=== PATIENT | female | born 1975 | race Caucasian/White ===

== ENCOUNTER 2017-02-14 22:17 | Outpatient (CLI) | payer MEDICAID ==
[~2017-02-14] VITALS: Ht 172.7 cm; Wt 105.5 kg
[2017-02-14 23:15] VITALS: Ht 172.7 cm; Wt 105.5 kg
[2017-02-14 23:16] VITALS: BP 131/60; PULSE 87; RESP 18
[2017-02-15] MEDS ORDERED: ACETAMINOPHEN 325 MG TAB PO ONE
[2017-02-15 00:22] LABS: BASOPHILS % 0.5 % (0.0-2.0); EOSINOPHILS # 0.1 10^3/ul (0.0-0.5); EOSINOPHILS % 1.3 % (0.0-7.0); HEMATOCRIT 33.2 % (37.0-47.0); HEMOGLOBIN 11.1 g/dl (12.0-16.0); LYMPHOCYTES # 1.9 10^3/ul (0.8-2.9); LYMPHOCYTES % 30.4 % (15.0-51.0); MEAN CORPUSCULAR HEMOGLOBIN 26.7 pg (29.0-33.0); MEAN CORPUSCULAR HGB CONC 33.4 g/dl (32.0-37.0); MEAN PLATELET VOLUME 9.5 fl (7.4-10.4); MONOCYTE # 0.7 10^3/ul (0.3-0.9); MONOCYTES % 10.7 % (0.0-11.0); NEUTROPHIL # 3.6 10^3/ul (1.6-7.5); NEUTROPHILS % 56.5 % (39.0-77.0); PLATELET COUNT 291 10^3/UL (140-415); RED BLOOD COUNT 4.15 10^6/ul (4.20-5.40); RED CELL DISTRIBUTION WIDTH 13.7 % (11.5-14.5); WHITE BLOOD COUNT 6.4 10^3/ul (4.8-10.8)
--- NOTE | 2017-02-15 00:27 | QN ---
Documentation Comment iup 35 weeks co ucx vss exam wnl a/p iup 35 weeks false labor AP TIDWELL MD Feb 15, 2017 00:27
[2017-02-15 00:42] LABS: ALBUMIN/GLOBULIN RATIO 0.88; BILIRUBIN,INDIRECT 0.2 mg/dl (0-1.1); BILIRUBIN,TOTAL 0.2 mg/dl (0.2-1.3); CREATININE 0.48 mg/dl (0.44-1.00); POTASSIUM 3.3 mmol/L (3.5-5.1); TOTAL PROTEIN 6.4 g/dl (6.1-8.1)
[2017-02-15 00:57] LABS: ADD UMIC YES; UR AMORPHOUS CRYSTAL FEW /HPF (NONE SEEN); UR ASCORBIC ACID NEGATIVE (NEGATIVE); UR BACTERIA FEW /HPF (NONE SEEN); UR BILIRUBIN (Dip) NEGATIVE (NEGATIVE); UR BLOOD (Dip) NEGATIVE (NEGATIVE); UR CLARITY CLOUDY (CLEAR); UR COLOR YELLOW (YELLOW); UR GLUCOSE (Dip) NEGATIVE (NEGATIVE); UR KETONES (Dip) NEGATIVE (NEGATIVE); UR LEUKOCYTE ESTERASE (Dip) TRACE Leu/ul (NEGATIVE); UR NITRITE (Dip) NEGATIVE (NEGATIVE); UR RBC 2 /HPF (0-5); UR SPECIFIC GRAVITY (Dip) 1.015 (1.003-1.030); UR SQUAMOUS EPITHELIAL CELL FEW /HPF (FEW); UR TOTAL PROTEIN (Dip) NEGATIVE (NEGATIVE); UR UROBILINOGEN (Dip) 1+ mg/dL (NEGATIVE)
--- NOTE | 2017-02-15 01:09 | RADRPT ---
PROCEDURE: Limited OB ultrasound to evaluate placenta CLINICAL INDICATION: 41-year-old female Vaginal bleeding. Evaluate placenta. TECHNIQUE: Sonographic evaluation to assess the cervical length was performed. Transabdominal and transvaginal imaging of the uterus was performed. COMPARISON: None. FINDINGS: MAHESH: March 17, 2017 EGA by MAHESH: 35 weeks 4 days A single live intrauterine in cephalic presentation is identified. The heart rate me asures 152 bpm. There is an posterior fundal placenta, grade 1. Placenta measures 4.5 cm in maximal thickness. Neg ative for evidence of placenta previa. IMPRESSION: Posterior fundal placenta without sonographic evidence of placental abruption or placenta previa. P lease note that ultrasound may be falsely negative in cases of placental abruption that is a clinica l diagnosis. RPTAT: HCTS Physician Jalyn Date Time Electronically viewed and signed by Physician Jalyn on 02/15/2017 01:09 /
--- NOTE | 2017-02-15 02:22 | TRIAGE ---
OB Triage Datetime Report Generated by CPN: 02/15/2017 02:21 Datetime: 02/15/2017 01:40 Stage of : OB Triage Labor Evaluation Frequency: 3-9 Monitor Mode: External Duration (sec)2399: 50-90 Quality: Mild Pattern: Normal: <= 5 Contractions in 10 Minutes Resting Tone Stanford: Relaxed Heart Rate FHR Baseline Rate: 130 Monitor Mode: External US Variability: Moderate 6-25 bpm Accelerations: 15X15 Decelerations: None Category: Category I Pain Presence: None/Denies Datetime: 02/15/2017 00:45 Stage of : OB Triage Labor Evaluation Frequency: 4-11 Monitor Mode: External Duration (sec)2399: 50-150 Quality: Mild Pattern: Normal: <= 5 Contractions in 10 Minutes Resting Tone Stanford: Relaxed Heart Rate FHR Baseline Rate: 135 Monitor Mode: External US Variability: Moderate 6-25 bpm Accelerations: 15X15 Decelerations: None Category: Category I Pain Assessment Pain Scale: 2 Pain Presence: Constant Pain Type: Crushing; Pressure Pain Location: Head Pain Goal: 3 Pain Relief Measures: Pain Medication Given (Annotations: WAS GIVEN AT 0011) Datetime: 02/14/2017 23:45 Stage of : OB Triage Temperature Route: Oral Labor Evaluation Frequency: 2-5 Monitor Mode: External Duration (sec)2399: 50-150 Quality: Mild Pattern: Normal: <= 5 Contractions in 10 Minutes Resting Tone Stanford: Relaxed Heart Rate FHR Baseline Rate: 140 Monitor Mode: External US Variability: Moderate 6-25 bpm Accelerations: 15X15 Decelerations: None Category: Category I Pain Assessment Pain Scale: 10 Pain Presence: Constant Pain Type: Crushing; Pressure Pain Location: Head Pain Goal: 3 Pain Relief Measures: Comfort Measures Datetime: 02/14/2017 23:29 Vaginal Exam Dilatation (cms): 0.0 Effacement (%): 0 Station: -3 Exam By: KEENA Vaginal Bleeding: Small Cervix, Consistency: Moderate Cervix, Position: Posterior Datetime: 02/14/2017 23:19 Assessment Type: Triage Maternal Assessment Level of Consciousness: Fully Conscious DTR's/Clonus: DTRs 2+; No Clonus Headache: Unilateral; Frontal (Annotations: rt. side) Blurred Vision: Yes (Annotations: rt. eye) Respiratory Effort: Unlabored; Regular Rhythm; Equal Expansion Breath Sounds, Left: Clear and Equal Breath Sounds, Right: Clear and Equal Nausea/Vomiting: Denies RUQ Epigastric Pain: Denies Lower Extremities Edema: Bilateral Lower Extremities Degree: 1+ Upper Extremities Edema: None Facial Edema: None Fall Risk Assessment History of Falling: (0) No Secondary Diagnosis: (0) No Ambulatory Aid: (0) Bedrest/Nurse Assist IV Therapy: (0) No Gait: (0) Normal/Bedrest/Immobile Mental Status: (0) Oriented to Own Ability Fall Score: 0 Fall Risk Score Definition: No Risk: No action required Datetime: 02/14/2017 23:18 Time of Arrival: 02/14/2017 22:00 EGA: 35.4 Arrived By: Wheelchair Arrived From: Home Chief Complaint: rt side headache, sees spots from rt. eye and rt. leg numb Movement: Present Contractions: Irregular Time Contractions Began: 02/14/2017 21:30 Rupture of Membranes: Denies Vaginal Discharge: Denies Recent Sexual Intercouse: Denies Time Provider Notified: 02/14/2017 23:46 Provider Notified: DIANN Initial Plan: efm, assessment, call md for orders
== END 2017-02-15 01:53 | disposition home or self-care (01) ==
LOC: L-D 22:17 → OBT 22:17 → L-D 22:30 → OBT 02-15 01:53
PROVIDERS: ATTEND Obstetrics & Gynecology
DX: O62.9 Abnormality of forces of labor, unspecified (principal); Z3A.35 35 weeks gestation of pregnancy
CPT/HCPCS: 76815; 80053; 81001; 85025; Z7500; Z7610; G0463

== ENCOUNTER 2017-03-08 10:48 | Inpatient (IN) | payer MEDICAID ==
[~2017-03-08] VITALS: Ht 172.7 cm; Wt 106.8 kg
[2017-03-08 11:36] VITALS: BP 118/57; PULSE 79; RESP 20; Ht 172.7 cm; Wt 106.8 kg
--- NOTE | 2017-03-08 14:06 | RADRPT ---
PROCEDURE: Obstetrical ultrasound for biophysical profile CLINICAL INDICATION: Biophysical profile. . TECHNIQUE: Obstetrical ultrasound of the uterus for biophysical profile. Transabdominal views are obtained. COMPARISON: 02/15/2017 FINDINGS: Single intrauterine gestation. Presentation: Cephalic. Placenta: Fundal No evidence of placental abruption. No evidence of placenta previa. breathing movement = 2/2 tone = 2/2 motion = 2/2 RASHID = 2/2 RASHID = 10.4 cm heart rate: 144 beats per minute IMPRESSION: Single intrauterine gestation. Biophysical profile 02/11 RPTAT: AADD .Maxim Ponce MD, MD Date Time Electronically viewed and signed by .Maxim Ponce MD, on 03/08/2017 14:06 .B/
--- NOTE | 2017-03-08 14:09 | RADRPT ---
PROCEDURE: Obstetrical ultrasound. CLINICAL INDICATION: , evaluation. Pelvic pain. TECHNIQUE: Transabdominal sonographic images of the uterus obtained after first trimester , greater than 14 weeks gestation. Single intrauterine gestation present. COMPARISON: 02/15/2017 FINDINGS: Single intrauterine gestation. There is a cephalic presentation. Measurements were made in order to determine age. The results are as follows: BPD = 36 weeks 4 day(s) HC = 38 weeks 3 day(s) AC = 41 weeks 1 day(s) FL = 38 weeks 0 day(s) Heart rate = 135 beats per minute The placenta is fundal. There is no evidence for an abruption or placenta previa. Ovaries are not visualized. IMPRESSION: Single intrauterine gestation of approximately 38 weeks 4 days by ultrasound criteria. [place] estimated weight = 3823 g; 84 percentile for gestational age of 38 weeks 5 days. RPTAT: AADD .Maxim Ponce MD, MD Date Time Electronically viewed and signed by .Maxim Ponce MD, on 03/08/2017 14:09 .B/
[2017-03-08] MEDS ORDERED: OXYTOCIN 30 UNITS/LR 500 ML IV SCH ×3 (14:30)
[2017-03-08] MEDS ORDERED: IBUPROFEN 600 MG TAB PO PRN (14:30)
[2017-03-08] MEDS ORDERED: OXYTOCIN 30 UNITS/LR 500 ML IV PRN (14:30)
[2017-03-08] MEDS ORDERED: METHYLERGONOVINE 0.2 MG INJ IM PRN (14:30)
[2017-03-08] MEDS ORDERED: LIDOCAINE 1% (MPF) 30 ML INJ INJ PRN (14:30)
[2017-03-08] MEDS ORDERED: CARBOPROST 250 MCG INJ IM PRN (14:30)
[2017-03-08] MEDS ORDERED: MISOPROSTOL 200 MCG TAB PR PRN (14:30)
[2017-03-08] MEDS ORDERED: BUTORPHANOL 2 MG INJ IV PRN ×2 (14:30)
[2017-03-08] MEDS ORDERED: LACTATED RINGER'S 1,000 ML IV PRN (14:30)
[2017-03-08] MEDS ORDERED: PRENAT PO (15:35)
[2017-03-08] MEDS ORDERED: FERR325C PO (15:35)
[2017-03-08 15:37] LABS: BASOPHILS % 0.4 % (0.0-2.0); EOSINOPHILS # 0.1 10^3/ul (0.0-0.5); EOSINOPHILS % 0.7 % (0.0-7.0); HEMATOCRIT 34.1 % (37.0-47.0); LYMPHOCYTES # 1.7 10^3/ul (0.8-2.9); LYMPHOCYTES % 24.3 % (15.0-51.0); MEAN CORPUSCULAR HEMOGLOBIN 25.6 pg (29.0-33.0); MEAN CORPUSCULAR HGB CONC 32.3 g/dl (32.0-37.0); MEAN CORPUSCULAR VOLUME 79.5 fl (82.0-101.0); MEAN PLATELET VOLUME 9.7 fl (7.4-10.4); MONOCYTE # 0.5 10^3/ul (0.3-0.9); MONOCYTES % 7.6 % (0.0-11.0); NEUTROPHILS % 66.4 % (39.0-77.0); PLATELET COUNT 282 10^3/UL (140-415); RED BLOOD COUNT 4.29 10^6/ul (4.20-5.40); RED CELL DISTRIBUTION WIDTH 14.5 % (11.5-14.5); WHITE BLOOD COUNT 7.1 10^3/ul (4.8-10.8)
[2017-03-08] MEDS: LACTATED RINGER'S 1,000 ML IV SCH ×2 (15:37→18:11)
[2017-03-08 15:40] LABS: ADD UMIC YES; UR ASCORBIC ACID NEGATIVE (NEGATIVE); UR BACTERIA FEW /HPF (NONE SEEN); UR BILIRUBIN (Dip) NEGATIVE (NEGATIVE); UR BLOOD (Dip) 2+ mg/dL (NEGATIVE); UR CLARITY SLIGHTLY CLOUDY (CLEAR); UR COLOR YELLOW (YELLOW); UR GLUCOSE (Dip) NEGATIVE (NEGATIVE); UR KETONES (Dip) NEGATIVE (NEGATIVE); UR LEUKOCYTE ESTERASE (Dip) 3+ Leu/ul (NEGATIVE); UR MUCUS FEW /HPF (NONE SEEN); UR NITRITE (Dip) NEGATIVE (NEGATIVE); UR RBC 1 /HPF (0-5); UR SPECIFIC GRAVITY (Dip) 1.013 (1.003-1.030); UR SQUAMOUS EPITHELIAL CELL FEW /HPF (FEW); UR TOTAL PROTEIN (Dip) NEGATIVE (NEGATIVE); UR UROBILINOGEN (Dip) 1+ mg/dL (NEGATIVE)
[2017-03-08 15:53] LABS: INR 0.99; PROTIME 13.1 Sec (12.2-14.2)
[2017-03-08 15:54] LABS: PARTIAL THROMBOPLASTIN TIME 26.6 Sec (25.0-35.0)
[2017-03-09] MEDS: LACTATED RINGER'S 1,000 ML IV SCH ×3 (03:42→18:59)
--- NOTE | 2017-03-09 12:39 | HP ---
Date/Time of Note Date/Time of Note DATE: 03/09/17 TIME: 12:28 OB - History Hx of Present Free Text/Dictation 41 years old 5 para 3 EDC March 17, 2017 admitted at 38 weeks and 6days in early labor she was admitted by the laborist rat poisoner , since her contractions are infrequent we will continue observation for progress of labor if no cervical change during the course of these observation patient may be discharged home to the care of the clinic after evaluation of baby,s condition by forming a biophysical profile and estimated weight. Chief Complaint: 38 weeks and 6 days r/o Estimated Due Date: Mar 17, 2017 : 5 Para: 3 Spontaneous : 1 Care: Good Care Ultrasounds: Normal mid trimester US Obstetrical Complications: None Medical Complications: None Past Family/Social History * Past Medical, Surgical, Family and Obstetric Histories reviewed from chart. Rubella: immune RPR/VDRL: Negative GBS Status: Negative OB Admission Exam Vital Signs Vital Signs Vital Signs Date Time Temp Pulse Resp B/P Pulse Ox O2 Delivery O2 Flow Rate FiO2 03/08/17 11:36 98.8 79 20 118/57 98 Room Air Physical Exam HEENT: WNL Heart: Rhythm Normal Abdomen: WNL Extremities: Normal Reflexes: Normal Cervical Dilatation: 3cm Effacement: 75% Station: -2 Membranes: Intact Heart Rate: 130's Accelerations: Accelerations Present Decelerations: No Decelerations Varibility: Moderate Contractions on Admission: 6-10 Minutes Apart Intensity: Mild Last 72 hours Lab Results CBC & BMP 03/08/17 15:15 BHUPINDER BYRD MD Mar 09, 2017 12:38
[2017-03-10] MEDS: LACTATED RINGER'S 1,000 ML IV SCH ×2 (00:31→04:17)
[2017-03-10] MEDS ORDERED: FENTAnyl 2MCG/ML-ROPIV 0.2% 100 ML ONE (01:03)
[2017-03-10] MEDS ORDERED: FENTAnyl 2MCG/ML-ROPIV 0.2% 100 ML BAG EPI SCH (01:30)
[2017-03-10] MEDS ORDERED: NALOXONE (0.4 MG/ML) INJ IV PRN (01:30)
[2017-03-10] MEDS ORDERED: MINERAL OIL LIGHT 10 ML VIAL ONE (05:32)
--- NOTE | 2017-03-10 06:02 | LDN ---
Date/Time of Note Date/Time of Note DATE: 03/10/17 TIME: 05:59 Delivery Summary normal vaginal delivery Weeks of Gestation 38w6d Placenta Delivered: Spontaneously Meconium: none Episiotomy: No Perineal laceration: 1 Laceration repair: 000ch gut Anesthesia type: Epidural Estimated blood loss: 200 Sponge & Needle done & correct: Yes All needle counts correct: Yes Any foreign bodies felt in the: No Problems: Delivery Information Sex Sex: female Apgars 1 Minute: 8 5 Minute: 9 Suctioning Nose & mouth suctioned at jack: Yes Delee suction performed: No Umbilical Cord Umbilical cord with: 3 Vessels Cord presentations: no nuchal cord Cord Blood was obtained: Yes Mother & Baby Disposition Disposition Mom & Baby to Maternity; Good: Yes Mom transferred to: Other () Baby to NICU: No NISHANT ROD MD Mar 10, 2017 06:02
[2017-03-10] MEDS ORDERED: ZOLPIDEM 5 MG TAB PO PRN (09:00)
[2017-03-10] MEDS ORDERED: OXYCODONE/ASPIRIN (4.88/325) TAB PO PRN ×2 (09:00)
[2017-03-10] MEDS ORDERED: CARBOPROST 250 MCG INJ IM PRN (09:00)
[2017-03-10] MEDS ORDERED: METHYLERGONOVINE 0.2 MG INJ IM PRN (09:00)
[2017-03-10] MEDS ORDERED: MISOPROSTOL 200 MCG TAB PR PRN (09:00)
[2017-03-10] MEDS ORDERED: OXYTOCIN 30 UNITS/LR 500 ML IV PRN (09:00)
[2017-03-10] MEDS ORDERED: LANOLIN 7 GM TUBE TOP PRN (09:00)
[2017-03-10 09:30] VITALS: BP 108/53; PULSE 75; RESP 18
[2017-03-10] MEDS: SENNA/DOCUSATE NA (8.6MG/50MG) TAB PO SCH ×2 (10:15→21:08)
[2017-03-10 12:30] VITALS: BP 93/55; PULSE 71; RESP 18
[2017-03-10] MEDS: IBUPROFEN 600 MG TAB PO SCH ×2 (12:45→17:52)
[2017-03-10] MEDS: WITCH HAZEL/GLYCERIN PAD PR PRN ×2 (12:46→21:29)
[2017-03-10] MEDS: BENZOCAINE 20% 56 ML SPRAY TOP PRN ×2 (12:46→21:29)
[2017-03-10 15:30] VITALS: BP 94/55; PULSE 71; RESP 18
[2017-03-10 20:00] VITALS: BP 96/61; PULSE 76; RESP 18
[2017-03-11 00:30] VITALS: BP 101/62; PULSE 80; RESP 18
[2017-03-11 04:30] VITALS: BP 118/66; PULSE 73; RESP 18
[2017-03-11] MEDS: IBUPROFEN 600 MG TAB PO SCH ×5 (05:55→23:31)
[2017-03-11 08:00] VITALS: BP 110/60; PULSE 75; RESP 15
[2017-03-11] MEDS: SENNA/DOCUSATE NA (8.6MG/50MG) TAB PO SCH ×2 (08:21→20:38)
--- NOTE | 2017-03-11 09:37 | QN ---
Documentation Comment day 1 Afebrile Vital signs are stable Abdomen soft Uterus firm Lochia normal Extremity normal BHUPINDER BYRD MD Mar 11, 2017 09:37
[2017-03-11 10:20] LABS: BASOPHILS % 0.4 % (0.0-2.0); EOSINOPHILS # 0.1 10^3/ul (0.0-0.5); EOSINOPHILS % 1.7 % (0.0-7.0); HEMATOCRIT 32.6 % (37.0-47.0); HEMOGLOBIN 10.3 g/dl (12.0-16.0); LYMPHOCYTES # 1.8 10^3/ul (0.8-2.9); LYMPHOCYTES % 25.3 % (15.0-51.0); MEAN CORPUSCULAR HEMOGLOBIN 25.7 pg (29.0-33.0); MEAN CORPUSCULAR HGB CONC 31.6 g/dl (32.0-37.0); MEAN CORPUSCULAR VOLUME 81.3 fl (82.0-101.0); MEAN PLATELET VOLUME 9.6 fl (7.4-10.4); MONOCYTE # 0.4 10^3/ul (0.3-0.9); MONOCYTES % 5.4 % (0.0-11.0); NEUTROPHILS % 66.8 % (39.0-77.0); PLATELET COUNT 272 10^3/UL (140-415); RED BLOOD COUNT 4.01 10^6/ul (4.20-5.40); RED CELL DISTRIBUTION WIDTH 14.7 % (11.5-14.5); WHITE BLOOD COUNT 6.9 10^3/ul (4.8-10.8)
[2017-03-11 16:00] VITALS: BP 112/59; PULSE 65; RESP 17
[2017-03-11 16:30] VITALS: BP 112/59; PULSE 65; RESP 17
[2017-03-11 19:41] VITALS: BP 119/62; PULSE 70; RESP 18
[2017-03-12 04:00] VITALS: BP 114/72; PULSE 69; RESP 20
[2017-03-12] MEDS: IBUPROFEN 600 MG TAB PO SCH ×2 (05:44→12:11)
[2017-03-12 08:20] VITALS: BP 114/72; PULSE 69; RESP 18
[2017-03-12] MEDS: SENNA/DOCUSATE NA (8.6MG/50MG) TAB PO SCH (08:38)
[2017-03-12] MEDS: BENZOCAINE 20% 56 ML SPRAY TOP PRN (08:39)
[2017-03-12] MEDS ORDERED: DIPHTH/TET/ACEL PERTUSS (ADULT) 0.5 ML VIAL IM* ONE (09:00)
--- NOTE | 2017-03-12 10:28 | DS ---
Date/Time of Note Date/Time of Note DATE: 03/12/17 TIME: 10:27 Discharge Summary Admission/Discharge Info Admit Date/Time Mar 08, 2017 at 14:10 Discharge Date/Time March 12, 2017 at 1050 Discharge Diagnosis Second day post normal vaginal delivery Patient Condition: Good Procedures Normal vaginal delivery Hx of Present Illness Term in labor Hospital Course Satisfactory uneventful Home Meds Reported Medications Ferrous Sulfate (Iron) 325 Mg Capsule.er, 325 MG PO DAILY, CAP 03/08/17 Multivit/Min/Fol Ac/Iron/Pren* ( S*) 1 Tab Tab, 1 TAB PO DAILY, TAB 03/08/17 Follow-up Plan instructions given recommended to make appointment to be seen at the clinic in 2 weeks Primary Care Provider Not On Staff Doctor Time spent on discharge: < 30 minutes BHUPINDER BYRD MD Mar 12, 2017 10:28
== END 2017-03-12 16:29 | disposition home or self-care (01) | DRG 775 ==
LOC: OBT 10:48 → L-D 10:49 → OBT 14:10 → L-D 14:10 → PP1 03-10 09:36
PROVIDERS: ADMIT Obstetrics & Gynecology; ATTEND Obstetrics & Gynecology
PROC: 10E0XZZ Delivery of Products of Conception, External Approach (ICD-10-PCS; principal; 2017-03-10)
PROC: 0HQ9XZZ Repair Perineum Skin, External Approach (ICD-10-PCS; 2017-03-10)
DX: O70.0 First degree perineal laceration during delivery (principal); Z37.0 Single live birth; Z3A.38 38 weeks gestation of pregnancy
CPT/HCPCS: 62319; 76815; 76818; 81001; 85025; 85610; 85730; 86592; 86900; 86901; 87340; 90715; 99464; G0463; J2590; J3010; J7120